=== PATIENT | female | born 1960 | race African-American/Black ===

== ENCOUNTER 2016-10-02 12:50 | Observation (INO) | payer OTHER ==
[~2016-10-02] VITALS: Ht 157.5 cm; Wt 77.0 kg
[~2016-10-02 12:50] MED LIST: ASPIRIN E.C.81 M1 PO; CIPRO500 MG PO; FLOVENT 22120 INHALA IH; GLYBURIDE5 MG PO; LISINOPRIL40 MG PO; LOPRESSOR25 MG PO; METFORMIN HCL1000 MG PO; NOHOMEMEDS; PRAVASTATIN SOD20 MG PO; PROTONIX40 MG PO; RANITIDINE HCL150 MG PO; TYLENOL WITH C1 EACH PO
[2016-10-02 13:59] LABS: HEMATOCRIT 37.4 % (36.0-46.0); MCH 28.5 PG (29.0-34.0); MCHC 32.9 G/DL (30.0-36.0); MCV 86.6 FL (83-99); MEAN PLAT.VOLUME 11.2 uM^3 (9.5-12.4); PLATELET COUNT 200 K/uL (156-360); RBC DIS.WIDTH-CV 12.6 % (11.8-14.6); RBC DIS.WIDTH-SD 39.5 % (39-53); RED BLOOD COUNT 4.32 M/uL (3.80-5.20); WHITE BLOOD COUNT 8.6 K/uL (4.1-10.2)
[2016-10-02 14:10] LABS: CHLORIDE 100 mEq/L (99-109); POTASSIUM 4.7 mEq/L (3.7-5.4); SODIUM 134 mEq/L (136-147)
[2016-10-02 14:13] LABS: ANION GAP 10 MEQ/L (2-14)
[2016-10-02 14:16] LABS: GFR ESTIMATE (CALCULATED) 40 mL/min/; UREA NITROGEN (BUN) 30 mg/dL (9-23)
[2016-10-02 14:36] LABS: GLUCOSE 566 mg/dL (70-99)
[2016-10-02 14:53] LABS: CARBON DIOXIDE (BICARBONATE) 26.7 MEQ/L (20-31)
[2016-10-02] MEDS ORDERED: TRAMADOL HCL50 MG PO (15:29)
[2016-10-02] MEDS ORDERED: LYRICA50 MG PO (15:29)
[2016-10-02] MEDS ORDERED: MELOXICAM15 MG PO (15:30)
[2016-10-02] MEDS ORDERED: RANITIDINE HCL150 M1 PO (15:31)
[2016-10-02 17:20] LABS: POINT-OF-CARE METER ID UU14100415
[2016-10-02] MEDS ORDERED: LOPRESSOR100 M1 PO (17:22)
[2016-10-02] MEDS ORDERED: METFORMIN HCL500 MG PO (17:24)
[2016-10-02] MEDS ORDERED: LO-DOSE ASPIRIN81 M2 PO (17:25)
[2016-10-02] MEDS ORDERED: VENTOLIN HFA18 GM IH (17:25)
[2016-10-02] MEDS ORDERED: FLOVENT 22120 INHALA IH (17:35)
[2016-10-02 19:29] LABS: POINT-OF-CARE METER ID UU14100415
[2016-10-02 20:03] LABS: TROP-I INTERPRETATION NEGATIVE; TROPONIN-I < 0.01 ng/mL (0.0-0.30)
[2016-10-02 20:12] VITALS: BP 129/70
[2016-10-02 20:50] LABS: POINT-OF-CARE METER ID UU14174225
[2016-10-02 20:56] LABS: Estimated Average Glucose 346 mg/dL (70-123)
[2016-10-02 21:43] LABS: HEMOGLOBIN A1c (GLYCOHEMOGLOB) 13.7 % HGB (Below 5.7)
[2016-10-02 22:57] VITALS: BP 112/67
[2016-10-02 23:06] LABS: ADD MIUA? YES; BILIRUBIN NEGATIVE; BLOOD NEGATIVE; COLOR YELLOW ((YELLOW)); GLUCOSE (STRIP) >=500; KETONES NEGATIVE; LEUKOCYTES MODERATE; NITRITE NEGATIVE; PROTEIN (STRIP) 30; SPECIFIC GRAVITY 1.024 (1.000-1.030); UROBILINOGEN 0.2 MG/DL (0.2-1.0)
[2016-10-02 23:23] LABS: BACTERIA RARE /HPF; EPITHELIAL CELLS 2+ /HPF; HYALINE CASTS 20-30 /LPF; MUCUS TRACE /LPF; UCUL ADDED? NO
[2016-10-03 01:31] LABS: TROP-I INTERPRETATION NEGATIVE; TROPONIN-I < 0.01 ng/mL (0.0-0.30)
[2016-10-03 03:58] VITALS: BP 116/74
[2016-10-03 07:35] LABS: POINT-OF-CARE METER ID UU14174225
[2016-10-03 07:54] VITALS: BP 127/63
[2016-10-03 09:12] LABS: ANION GAP 6 MEQ/L (2-14); CHLORIDE 109 MEQ/L (99-109); POTASSIUM 4.2 MEQ/L (3.7-5.4); SAMPLE HEMOLYSIS CHECK 0; SAMPLE ICTERIC CHECK 0; SAMPLE LIPEMIA CHECK 0; SODIUM 139 MEQ/L (136-147); UREA NITROGEN (BUN) 24 mg/dL (9-23)
[2016-10-03 09:13] LABS: GFR ESTIMATE (CALCULATED) > 59 mL/min/; GLUCOSE 174 mg/dL (70-99)
[2016-10-03 10:13] LABS: TROP-I INTERPRETATION NEGATIVE; TROPONIN-I < 0.01 ng/mL (0.0-0.30)
[2016-10-03] MEDS ORDERED: PRAVASTATIN SOD40 MG PO (11:30)
[2016-10-03 11:47] VITALS: BP 123/65
[2016-10-03 12:05] LABS: POINT-OF-CARE METER ID UU14174225
[2016-10-03] MEDS ORDERED: METFORMIN HCL500 MG PO (12:17)
== END 2016-10-03 13:11 | disposition home or self-care (01) ==
LOC: EXP 12:50 → EME 12:50 → 5SOUTH 18:32 → EDOF 18:32 → 5SOUTH 20:11
PROVIDERS: Hospitalist; Internal Medicine; Physician Assistant
DX: E11.65 Type 2 diabetes mellitus with hyperglycemia (principal); Z79.84 Long term (current) use of oral hypoglycemic drugs; N17.9 Acute kidney failure, unspecified; E78.5 Hyperlipidemia, unspecified; I10 Essential (primary) hypertension; Z83.3 Family history of diabetes mellitus; F17.200 Nicotine dependence, unspecified, uncomplicated; Z79.82 Long term (current) use of aspirin
CPT/HCPCS: 71020; 80048; 81003; 82010; 82803; 82948; 83036; 84484; 85027; 99281; 99285; G0378; J1644; J1815; J7030